=== PATIENT | male | born 1975 | race Two or more races ===

== ENCOUNTER 2018-12-30 11:26 | Emergency (ER) | payer MEDICAID ==
[~2018-12-30] VITALS: Ht 182.9 cm; Wt 103.0 kg
[2018-12-30] MEDS ORDERED: KETOROLAC 60MG/2ML VIAL IM STA (14:25)
[2018-12-30 15:05] VITALS: BP 134/88
== END 2018-12-30 15:07 | disposition home or self-care (01) ==
LOC: ER 11:26
DX: S46.812A Strain of other muscles, fascia and tendons at shoulder and upper arm level, left arm, initial encounter (principal); X58.XXXA Exposure to other specified factors, initial encounter; Y93.89 Activity, other specified; Y92.89 Other specified places as the place of occurrence of the external cause; Y99.8 Other external cause status
CPT/HCPCS: 96372; 99283; J1885; Z7610

== ENCOUNTER 2018-12-31 00:59 | Emergency (ER) | payer MEDICAID ==
[~2018-12-31] VITALS: Ht 167.6 cm; Wt 103.0 kg
[2018-12-31] MEDS ORDERED: HYDROCODONE/ACETAMINOPHEN 5/325MG TABLET PO ONE (03:45)
[2018-12-31 05:38] VITALS: BP 140/89
== END 2018-12-31 05:45 | disposition home or self-care (01) ==
LOC: ER 00:59
DX: M25.512 Pain in left shoulder (principal); W11.XXXA Fall on and from ladder, initial encounter; Y93.9 Activity, unspecified; Y92.9 Unspecified place or not applicable
CPT/HCPCS: 73030; 99283; Z7610; A4565